=== PATIENT | male | born 2000 | race American Indian/Alaskan Native ===

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

== ENCOUNTER 2020-01-03 02:45 | Emergency (ER) | payer MEDICAID ==
[2020-01-03 03:10] VITALS: BP 118/93
--- NOTE | 2020-01-03 03:18 | Emergency Department Report ---
ED Rash HPI - HPI Chief Complaint: Skin Rash Stated Complaint: POSS ALLERGIC REACTION Time Seen by Provider: 01/03/20 03:12 Duration: 1 Day Location: Upper Extremities Rash Symptoms: Yes Itching, No Facial Swelling, No Tongue/Oral Swelling, No Breathing Difficulties, No Choking Sensation, No Wheezing/Dyspnea, No Blistering, No Fever, No Lightheaded, No Malaise, No Myalgias Severity: mild ED Review of Systems ROS: Stated complaint: POSS ALLERGIC REACTION Other details as noted in HPI Comment: All other systems reviewed and negative ED Past Medical Hx - Past Medical History Previous Medical History?: Yes Hx Hypertension: No Hx Asthma: Yes - Surgical History Past Surgical History?: No - Social History Smoking Status: Former Smoker Substance Use Type: None - Medications Home Medications: Home Medications Medication Instructions Recorded Confirmed Last Taken Type Ibuprofen [Motrin] 400 mg PO Q8H PRN #20 tablet 05/30/14 Unknown Rx Mometasone Furoate [Elocon] 1 applicatio TP QDAY #45 cream..g. 01/03/20 Unknown Rx hydrOXYzine HCL [Atarax] 25 mg PO Q6HR PRN #20 tablet 01/03/20 Unknown Rx Rash Exam - Exam General: Vital signs noted. No distress. Alert and acting appropriately. HEENT: No Periorbital Edema, No Conjuctival Injection, No Chemosis, No Perioral Edema, No Tongue Edema, No Uvular Edema, No Compromised Airway, No Drooling Lungs: Yes Good Air Exchange (Normal Breath Sounds), No Wheezes, No Ronchi, No Stridor, No Cough, No Labored Respirations, No Retractions, No Use of Accessory Muscles, No Other Abnormal Lung Sounds Heart: Yes Regular, No Murmur Skin: Yes Maculopapular Rash (To the hands primarily between the webbing and slightly to the right upper thigh), Yes Erythema, No Urticarial Rash, No Morbilliform rash, No Bulla(e), No Excoriations, No Weeping Other: Positive: Abdomen Normal, Neurologic Normal, Musculoskeletal Normal ED Course Vital Signs 01/03/20 02:50 Temperature 98.3 F Pulse Rate 70 Respiratory 18 Rate Blood Pressure 118/93 O2 Sat by Pulse 98 Oximetry Critical care attestation.: If time is entered above; I have spent that time in minutes in the direct care of this critically ill patient, excluding procedure time. ED Disposition Clinical Impression: Rash of hands Disposition: DC- TO HOME OR SELFCARE Is pt being admited?: No Does the pt Need Aspirin: No Condition: Stable Instructions: Acute Rash (ED) Prescriptions: hydrOXYzine HCL [Atarax] 25 mg PO Q6HR PRN #20 tablet PRN Reason: Itching Mometasone Furoate [Elocon] 1 applicatio TP QDAY #45 cream..g. Referrals: STELLA SANABRIA MD [Primary Care Provider] - 3-5 Days
== END 2020-01-03 03:40 | disposition home or self-care (01) ==
LOC: ED 02:45
DX: R21 Rash and other nonspecific skin eruption (principal); J45.909 Unspecified asthma, uncomplicated; Z79.891 Long term (current) use of opiate analgesic; Z79.899 Other long term (current) drug therapy
CPT/HCPCS: 99282

== ENCOUNTER 2022-01-18 21:18 | Emergency (ER) | payer MEDICAID ==
[2022-01-18 22:01] VITALS: BP 115/73
--- NOTE | 2022-01-18 22:35 | XRay Report ---
RIGHT HAND 3 VIEW(S) INDICATION / CLINICAL INFORMATION: injured R thumb COMPARISON: None available. FINDINGS: BONES / JOINT(S): No acute fracture or subluxation. SOFT TISSUES: Soft tissue irregularity suggesting injury noted in the region of the interphalangeal j oint. No radiopaque foreign bodies. ADDITIONAL FINDINGS: None. IMPRESSION: 1. No acute fracture. Soft tissue injury without evidence of radiopaque foreign body deposition.. Signer Name: Vicente Patel II, MD Signed: 01/18/2022 10:30 PM Workstation Name: [id number]
[2022-01-19] MEDS ORDERED: IBUPROFEN 600 MG TAB PO ONE (01:45)
--- NOTE | 2022-01-19 04:13 | Emergency Department Report ---
ED Upper Extremity Inj HPI - General Chief Complaint: Extremity Injury, Upper Stated Complaint: RIGHT THUMB INJURY Source: patient Mode of arrival: Ambulatory Limitations: No Limitations - History of Present Illness Initial Comments: Patient is a 21-year-old -[place] male with past medical history of asthma presents to the ED with complaint of acute onset persistent right thumb bleeding laceration wound and right hand pain after falling during a basketball practice and another player stepped on his right hand about 4 hours ago. Patient states that the pain is constant and persistent with any active range of motion of the right hand. Patient denies head or neck injuries, dizziness, syncope, seizures, nausea and vomiting, numbness and tingling or weakness of rig ht hand. MD Complaint: Injury to:: right, hand (right hand pain), finger (right thumb abrasion) -: Sudden, hour(s) (4) Other Extremity Injury: Fingers: Right (right thumb abrasion), Hand: Right (pain) Other Injuries: none Place: outdoors Severity scale (0 -10): 7 Improves With: none Worsens With: movement of extremity Context: fall, direct blow, sports-related injury (basketball) Associated Symptoms: denies other symptoms. denies: weakness, numbness, neck pain, suspects foreign body, nausea/vomiting, heard/felt popping sensat - Related Data Previous Rx's Medication Instructions Recorded Last Taken Type Ibuprofen [Motrin] 400 mg PO Q8H PRN #20 tablet 05/30/14 Unknown Rx Mometasone Furoate [Elocon] 1 applicatio TP QDAY #45 cream..g. 01/03/20 Unknown Rx hydrOXYzine HCL [Atarax] 25 mg PO Q6HR PRN #20 tablet 01/03/20 Unknown Rx Ibuprofen [Motrin] 600 mg PO Q8H PRN #30 tablet 01/19/22 Unknown Rx cephALEXin [Keflex] 500 mg PO Q8HR #21 cap 01/19/22 Unknown Rx Allergies Allergy/AdvReac Type Severity Reaction Status Date / Time No Known Allergies Allergy Verified 05/29/14 21:22 ED Review of Systems ROS: Stated complaint: RIGHT THUMB INJURY Other details as noted in HPI Constitutional: denies: chills, fever Eyes: denies: eye pain, eye discharge, vision change ENT: denies: ear pain, throat pain Respiratory: denies: cough, shortness of breath, wheezing Cardiovascular: denies: chest pain, palpitations Endocrine: no symptoms reported Gastrointestinal: denies: abdominal pain, nausea, vomiting, diarrhea Genitourinary: denies: urgency, dysuria Musculoskeletal: arthralgia (Right hand pain and right thumb abrasion). denies: back pain, joint swelling Skin: other (right thumb abrasion). denies: rash, lesions Neurological: denies: headache, weakness, paresthesias Psychiatric: denies: anxiety, depression Hematological/Lymphatic: denies: easy bleeding, easy bruising ED Past Medical Hx - Past Medical History Hx Hypertension: No Hx Asthma: Yes - Social History Smoking Status: Never Smoker - Medications Home Medications: Home Medications Medication Instructions Recorded Confirmed Last Taken Type Ibuprofen [Motrin] 400 mg PO Q8H PRN #20 tablet 05/30/14 Unknown Rx Mometasone Furoate [Elocon] 1 applicatio TP QDAY #45 cream..g. 01/03/20 Unknown Rx hydrOXYzine HCL [Atarax] 25 mg PO Q6HR PRN #20 tablet 01/03/20 Unknown Rx Ibuprofen [Motrin] 600 mg PO Q8H PRN #30 tablet 01/19/22 Unknown Rx cephALEXin [Keflex] 500 mg PO Q8HR #21 cap 01/19/22 Unknown Rx ED Physical Exam - General Limitations: No Limitations General appearance: alert, in no apparent distress - Head Head exam: Present: atraumatic, normocephalic, normal inspection - Eye Eye exam: Present: normal appearance, PERRL, EOMI Pupils: Present: normal accommodation - ENT ENT exam: Present: normal exam, normal orophraynx, mucous membranes moist, TM's normal bilaterally, normal external ear exam - Neck Neck exam: Present: normal inspection, full ROM. Absent: tenderness - Respiratory Respiratory exam: Present: normal lung sounds bilaterally. Absent: respiratory distress, wheezes, rales, rhonchi, chest wall tenderness, accessory muscle use, prolonged expiratory - Cardiovascular Cardiovascular Exam: Present: regular rate, normal rhythm, normal heart sounds. Absent: systolic murmur, diastolic murmur, rubs, gallop - GI/Abdominal GI/Abdominal exam: Present: soft, normal bowel sounds. Absent: distended, tenderness, rebound, hyperactive bowel sounds, hypoactive bowel sounds, organomegaly, mass - Extremities Exam Extremities exam: Present: normal inspection, full ROM, tenderness (Palpable right hand tenderness, right thumb tenderness due to a bleeding abrasion wound), normal capillary refill. Absent: pedal edema, joint swelling, calf tenderness - Back Exam Back exam: Present: normal inspection, full ROM. Absent: tenderness, CVA tenderness (R), CVA tenderness (L), muscle spasm, paraspinal tenderness, vertebral tenderness - Neurological Exam Neurological exam: Present: alert, oriented X3, CN II-XII intact, normal gait, reflexes normal - Psychiatric Psychiatric exam: Present: normal affect, normal mood - Skin Skin exam: Present: warm, dry, intact, normal color, abrasion (Distal right thumb abrasion wound). Absent: rash ED Course Vital Signs 01/18/22 01/18/22 01/19/22 21:57 21:59 02:01 Temperature 99.3 F Pulse Rate 69 74 Respiratory 16 18 Rate Blood Pressure 115/73 [Right] O2 Sat by Pulse 97 98 Oximetry ED Medical Decision Making - Radiology Data Radiology results: report reviewed, image reviewed [facility] [address] [place] [address] XRay Report Signed Patient: OJ GONZALEZ R#: [id number] : 2000 Acct:[id number] Age/Sex: 21 / M ADM Date: 01/18/22 Loc: ED Attending Dr: Ordering Physician: GUSTAVO PENA MD Date of Service: 01/18/22 Procedure(s): XR hand 2V RT Accession Number(s): [id number] cc: ED MD BECKY Fluoro Time In Minutes: RIGHT HAND 3 VIEW(S) INDICATION / CLINICAL INFORMATION: injured R thumb COMPARISON: None available. FINDINGS: BONES / JOINT(S): No acute fracture or subluxation. SOFT TISSUES: Soft tissue irregularity suggesting injury noted in the region of the interphalangeal joint. No radiopaque foreign bodies. ADDITIONAL FINDINGS: None. IMPRESSION: 1. No acute fracture. Soft tissue injury without evidence of radiopaque foreign body deposition.. Signer Name: Kings Leon II, MD Signed: 01/18/2022 10:30 PM Workstation Name: [id number] Transcribed By: BA Dictated By: KINGS LEON II, MD Electronically Authenticated By: KINGS LEON II, MD Signed Date/Time: 01/18/222229 DD/ 28 TD/TT: - Medical Decision Making This is a 21-year-old -[place] male with past medical history of asthma presents to the ED with complaint of acute onset persistent right thumb bleeding laceration wound and right hand pain after falling during a basketball practice and another player stepped on his right hand about 4 hours ago. Patient states that the pain is constant and persistent with any active range of motion of the right hand. In the ED, patient is alert and oriented x3 and is not in any distress. Patient was treated for pain in the ED. Right hand x-ray showed no acute fractures or subluxations. The right thumb abrasion wound was cleaned extensively and closed with Dermabond. The wound was then dressed appropriately and the patient's right hand was splinted with Velcro splint. Patient was discharged home on pain medications and advised to follow-up with his primary care physician in 7 to 10 days for reevaluation or return to the ED immediately if symptoms get worse. - Differential Diagnosis Hand fracture; hand sprain; finger ablation; hand contusion Critical care attestation.: If time is entered above; I have spent that time in minutes in the direct care of this critically ill patient, excluding procedure time. ED Disposition Clinical Impression: Abrasion of right thumb, initial encounter Sprain of right hand Qualifiers: Encounter type: initial encounter Qualified Code(s): S63.91XA - Sprain of unspecified part of right wrist and hand, initial encounter Contusion of right hand including fingers Qualifiers: Encounter type: initial encounter Qualified Code(s): S60.221A - Contusion of right hand, initial encounter; S60.00XA - Contusion of unspecified finger without damage to nail, initial encounter Disposition: 01 HOME / SELF CARE / HOMELESS Is pt being admited?: No Does the pt Need Aspirin: No Condition: Stable Instructions: Finger Sprain, Adult, [id number], Abrasion, [id number], Hand Contusion, [id number] Additional Instructions: The right hand x-ray showed no acute fractures or subluxations. Take medication with food, drink plenty of fluids and follow-up with your primary care physician in 7 to 10 days for reevaluation. Return to the ED immediately if symptoms get worse. Prescriptions: cephALEXin [Keflex] 500 mg PO Q8HR #21 cap Ibuprofen [Motrin] 600 mg PO Q8H PRN #30 tablet PRN Reason: Pain Referrals: ROBERT SEYMOUR MD [Primary Care Provider] - 3-5 Days Forms: Work/School Release Form(ED) Time of Disposition: 04:14 Print Language: MARSHALLESE
== END 2022-01-19 04:58 | disposition home or self-care (01) ==
LOC: ED 21:18
DX: S60.00XA Contusion of unspecified finger without damage to nail, initial encounter (principal); S63.91XA Sprain of unspecified part of right wrist and hand, initial encounter; S60.311A Abrasion of right thumb, initial encounter; W19.XXXA Unspecified fall, initial encounter; Y93.89 Activity, other specified; Y92.89 Other specified places as the place of occurrence of the external cause; Y99.8 Other external cause status
CPT/HCPCS: 99284